=== PATIENT | male | born 1965 | race Caucasian/White ===

== ENCOUNTER 2021-08-20 22:55 | Inpatient (IN) | payer OTHER ==
[2021-08-21 00:03] LABS: #Basophils 0.1 10x3/uL (0.0-0.2); #Eosinphils 0.4 10x3/uL (0.0-0.5); #Monocytes 1.4 10x3/uL (0.0-1.1); #Neutrophils 12.4 10x3/uL (1.5-8.4); %Basophils 0.6 % (0.0-2.0); %Eosinophils 2.2 % (0.0-6.0); %Lymphocytes 18.9 % (18.0-47.0); %Monocytes 7.8 % (0.0-10.0); %Neutrophils 69.9 % (40.0-75.0); Mean Corpuscular HGB CONC 34.9 g/dL (32.0-36.0); Mean Corpuscular Hemoglobin 33.5 pg (27.0-33.0); Mean Platelet Volume 10.5 fl (7.4-10.4); Platelet Count 265 10x3/uL (150-450); RBC Distribution Width 13.2 % (11.5-14.5); Red Blood Cell (RBC) Count 4.77 10x6/uL (4.32-5.72); White Blood Cell (WBC) Count 17.8 10x3/uL (3.5-10.5)
[2021-08-21 00:17] LABS: ALT (SGPT) 27 U/L (8-55); AST (SGOT) 25 U/L (5-34); Albumin 4.1 g/dL (3.5-5.0); Alkaline Phosphatase 70 U/L (40-110); Anion Gap 13 mmol/L (10-20); BUN (Urea Nitrogen) 14 mg/dL (8.4-25.7); Bilirubin, Total 0.5 mg/dL (0.2-1.2); Calc. Creatinine Clearance 0 mL/min (70-130); Calcium 8.8 mg/dL (7.8-10.44); Carbon Dioxide 21 mmol/L (22-29); Chloride 108 mmol/L (98-107); Globulin 2.9 g/dL (2.4-3.5); Glucose 89 mg/dL (70-105); Sodium 138 mmol/L (136-145)
[2021-08-21] MEDS ORDERED: Aspirin 325 MG TAB ONE (01:30)
[2021-08-21] MEDS ORDERED: Nitroglycerin 0.4 MG TAB (25 Tab Bottle) SL PRN (02:36)
[2021-08-21] MEDS ORDERED: Nitroglycerin 2% Ointment 1 INCH/1 GM Packet ONE (03:20)
[2021-08-21] MEDS ORDERED: Furosemide 40 MG/4 ML VIAL SLOW IVP SCH ×2 (04:00→12:00)
[2021-08-21 04:06] LABS: Cardiac Risk 6.9 (Less than 4.5); Cholesterol 180 mg/dl (< 200 Desired); HDL Cholesterol 26 mg/dL (>60 Neg Risk); LDL Cholesterol, Calculated 120 mg/dL; Triglycerides 169 mg/dL (Less than 150)
[2021-08-21 04:16] LABS: Troponin I Less than 0.010 ng/mL (< 0.028)
[2021-08-21] MEDS ORDERED: Furosemide 40 MG/4 ML VIAL ONE (04:27)
[2021-08-21] MEDS: Nitroglycerin 2% Ointment 1 INCH/1 GM Packet TOP SCH ×3 (05:27→21:24)
[2021-08-21 06:28] LABS: Anion Gap 14 mmol/L (10-20); BUN (Urea Nitrogen) 14 mg/dL (8.4-25.7); Calc. Creatinine Clearance 0 mL/min (70-130); Carbon Dioxide 23 mmol/L (22-29); Chloride 107 mmol/L (98-107); Glucose 90 mg/dL (70-105); Potassium 3.7 mmol/L (3.5-5.1); Sodium 140 mmol/L (136-145)
[2021-08-21 06:33] LABS: Bilirubin Neg (Negative); Blood, Urine Negative (Negative); Clarity Clear (Clear); Glucose, Urine (Dipstick) Normal (Negative); Ketone, Urine Negative (Negative); Leukocyte 25 (Negative); Nitrite Negative (Negative); Protein, Urine (Dipstick) Negative (Neg-Trace); Specific Gravity, Urine 1.015 (1.002-1.036); Urobilinogen Normal mg/dL (Less than 2)
[2021-08-21 07:00] LABS: #Basophils 0.1 10x3/uL (0.0-0.2); #Eosinphils 0.5 10x3/uL (0.0-0.5); #Monocytes 1.1 10x3/uL (0.0-1.1); #Neutrophils 7.4 10x3/uL (1.5-8.4); %Basophils 0.9 % (0.0-2.0); %Eosinophils 3.9 % (0.0-6.0); %Lymphocytes 25.9 % (18.0-47.0); %Monocytes 8.5 % (0.0-10.0); %Neutrophils 60.1 % (40.0-75.0); Hemoglobin 16.2 g/dL (13.5-17.5); Mean Corpuscular HGB CONC 34.3 g/dL (32.0-36.0); Mean Corpuscular Hemoglobin 33.2 pg (27.0-33.0); Mean Corpuscular Volume 96.7 fl (81.2-95.1); Mean Platelet Volume 10.8 fl (7.4-10.4); Platelet Count 266 10x3/uL (150-450); RBC Distribution Width 13.6 % (11.5-14.5); Red Blood Cell (RBC) Count 4.88 10x6/uL (4.32-5.72); White Blood Cell (WBC) Count 12.3 10x3/uL (3.5-10.5)
[2021-08-21 07:12] LABS: Urine Culture Reflex No No
[2021-08-21 07:29] LABS: Bacteria/HPF None Seen HPF (None Seen); RBC/HPF None Seen HPF (0-3); Squamous Epithelial None Seen HPF (0-3); WBC/HPF 0-3 HPF (0-3)
[2021-08-21 08:11] LABS: Troponin I Less than 0.010 ng/mL (< 0.028)
[2021-08-21 08:29] VITALS: BMI 33.0
[2021-08-21] MEDS: Albuterol Sulfate 2.5 mg/3 ml Neb NEB SCH ×2 (10:45→18:50)
[2021-08-21] MEDS: Diltiazem HCl SR 60 mg Capsule PO SCH ×2 (11:11→21:25)
[2021-08-21] MEDS: Lisinopril 10 MG TAB PO SCH ×2 (11:11→21:25)
[2021-08-21] MEDS: Aspirin 81 mg Enteric Coated Tablet PO SCH (11:12)
[2021-08-21] MEDS: Enoxaparin Sodium 40 MG/0.4 ML SYRINGE SC SCH (11:12)
[2021-08-21] MEDS: Mometasone/Formoterol 200/5 60 PUFF INH SCH ×2 (11:45→19:00)
[2021-08-21 17:17] LABS: SARS-CoV-2 PCR by NAA Not Detected (NotDetected)
[2021-08-21] MEDS ORDERED: Atorvastatin Calcium 40 MG TAB PO SCH ×2 (21:00)
[2021-08-22 04:33] LABS: #Basophils 0.1 10x3/uL (0.0-0.2); #Eosinphils 0.4 10x3/uL (0.0-0.5); #Neutrophils 6.9 10x3/uL (1.5-8.4); %Basophils 0.8 % (0.0-2.0); %Eosinophils 3.4 % (0.0-6.0); %Lymphocytes 20.6 % (18.0-47.0); %Monocytes 9.5 % (0.0-10.0); %Neutrophils 64.7 % (40.0-75.0); Hemoglobin 15.5 g/dL (13.5-17.5); Mean Corpuscular HGB CONC 34.5 g/dL (32.0-36.0); Mean Corpuscular Hemoglobin 33.1 pg (27.0-33.0); Mean Corpuscular Volume 95.9 fl (81.2-95.1); Mean Platelet Volume 10.7 fl (7.4-10.4); Platelet Count 262 10x3/uL (150-450); RBC Distribution Width 13.5 % (11.5-14.5); Red Blood Cell (RBC) Count 4.68 10x6/uL (4.32-5.72); White Blood Cell (WBC) Count 10.7 10x3/uL (3.5-10.5)
[2021-08-22 04:47] LABS: Anion Gap 14 mmol/L (10-20); BUN (Urea Nitrogen) 18 mg/dL (8.4-25.7); Calc. Creatinine Clearance 97 mL/min (70-130); Carbon Dioxide 22 mmol/L (22-29); Chloride 105 mmol/L (98-107); Glucose 102 mg/dL (70-105); Potassium 3.8 mmol/L (3.5-5.1); Sodium 137 mmol/L (136-145)
[2021-08-22] MEDS: Nitroglycerin 2% Ointment 1 INCH/1 GM Packet TOP SCH (06:53)
[2021-08-22] MEDS ORDERED: Furosemide 40 MG TAB PO SCH (07:30)
[2021-08-22] MEDS: Albuterol Sulfate 2.5 mg/3 ml Neb NEB SCH (07:50)
[2021-08-22] MEDS: Mometasone/Formoterol 200/5 60 PUFF INH SCH (08:00)
[2021-08-22] MEDS: Enoxaparin Sodium 40 MG/0.4 ML SYRINGE SC SCH (09:54)
[2021-08-22] MEDS: Aspirin 81 mg Enteric Coated Tablet PO SCH (09:55)
[2021-08-22] MEDS: Diltiazem HCl SR 60 mg Capsule PO SCH (09:55)
[2021-08-22] MEDS: Lisinopril 10 MG TAB PO SCH (09:56)
[2021-08-22 12:04] VITALS: BP 126/74; TEMP 98
== END 2021-08-22 10:31 | disposition home or self-care (01) | DRG 291 ==
LOC: CSHERS 22:55 → CSHTELE 08-21 02:36 → CSHERHOLD 08-21 03:31 → UNDOADMOB 08-21 03:31 → INTOOBSV 08-21 03:31 → OBSVTOIN 08-21 03:31 → INTOOBSV 08-21 03:32 → OBSVTOIN 08-21 03:32 → CSHERHOLD 08-21 06:18 → CSHTELE 08-21 06:18 → UNDODISOB 08-22 12:00
PROVIDERS: ADMIT Family Medicine; ATTEND Family Medicine
DX: I11.0 Hypertensive heart disease with heart failure (principal); I50.33 Acute on chronic diastolic (congestive) heart failure; N39.0 Urinary tract infection, site not specified; Z20.822 Contact with and (suspected) exposure to COVID-19; K21.9 Gastro-esophageal reflux disease without esophagitis; R07.89 Other chest pain; F32.A Depression, unspecified; J44.9 Chronic obstructive pulmonary disease, unspecified; E78.5 Hyperlipidemia, unspecified; F17.210 Nicotine dependence, cigarettes, uncomplicated; F41.1 Generalized anxiety disorder; I25.10 Atherosclerotic heart disease of native coronary artery without angina pectoris; I25.2 Old myocardial infarction; Z79.51 Long term (current) use of inhaled steroids; Z79.82 Long term (current) use of aspirin; Z79.899 Other long term (current) drug therapy; Z95.2 Presence of prosthetic heart valve; Z71.6 Tobacco abuse counseling
CPT/HCPCS: 36415; 71045; 80048; 80053; 80061; 81001; 83735; 83880; 84484; 85025; 87040; 87086; 93005; 93306; 94640; 94664; J1650; J1940; J7611; U0003; U0005

== ENCOUNTER 2022-10-05 04:46 | Observation (INO) | payer BC, OTHER ==
[2022-10-05] MEDS ORDERED: Nitroglycerin 0.4 MG TAB 1 EACH ONE (05:19)
[2022-10-05] MEDS ORDERED: Ketorolac Tromethamine 30 MG/ML VIAL ONE ×3 (05:24→13:23)
[2022-10-05 05:44] LABS: #Basophils 0.1 10x3/uL (0.0-0.2); #Eosinphils 0.3 10x3/uL (0.0-0.5); #Monocytes 1.3 10x3/uL (0.0-1.1); #Neutrophils 13.8 10x3/uL (1.5-8.4); %Basophils 0.5 % (0.0-2.0); %Eosinophils 1.9 % (0.0-6.0); %Lymphocytes 9.3 % (18.0-47.0); %Monocytes 7.5 % (0.0-10.0); %Neutrophils 80.2 % (40.0-75.0); ALT (SGPT) 26 U/L (8-55); AST (SGOT) 22 U/L (5-34); Albumin 4.2 g/dL (3.5-5.0); Alkaline Phosphatase 83 U/L (40-110); Anion Gap 16 mmol/L (10-20); BUN (Urea Nitrogen) 14 mg/dL (8.4-25.7); Bilirubin, Total 0.4 mg/dL (0.2-1.2); Calc. Creatinine Clearance 0 mL/min (70-130); Calcium 9.9 mg/dL (7.8-10.44); Carbon Dioxide 21 mmol/L (22-29); Chloride 106 mmol/L (98-107); Estimated GFR 65; Globulin 2.8 g/dL (2.4-3.5); Glucose 116 mg/dL (70-105); Hemoglobin 13.6 g/dL (13.5-17.5); Mean Corpuscular HGB CONC 35.1 g/dL (32.0-36.0); Mean Corpuscular Hemoglobin 32.2 pg (27.0-33.0); Mean Corpuscular Volume 91.7 fl (81.2-95.1); Mean Platelet Volume 10.1 fl (7.4-10.4); Platelet Count 339 10x3/uL (150-450); Potassium 3.6 mmol/L (3.5-5.1); RBC Distribution Width 13.4 % (11.5-14.5); Red Blood Cell (RBC) Count 4.23 10x6/uL (4.32-5.72); Sodium 139 mmol/L (136-145); White Blood Cell (WBC) Count 17.2 10x3/uL (3.5-10.5)
[2022-10-05] MEDS ORDERED: Ipratropium/Albuterol 3 ML NEB ONE (06:19)
[2022-10-05] MEDS ORDERED: predniSONE 20 MG TAB ONE (06:28)
[2022-10-05 07:21] LABS: SARS-CoV-2 NAA Rapid Test Not Detected (NotDetected)
[2022-10-05] MEDS ORDERED: Aspirin Chewable 81 MG TAB ONE (08:57)
[2022-10-05] MEDS ORDERED: Acetaminophen 500 MG TAB ONE (08:57)
[2022-10-05 08:59] LABS: Troponin I 0.013 ng/mL (< 0.028)
[2022-10-05] MEDS ORDERED: Iopamidol 370 76% 100 ML VIAL ONE (09:03)
[2022-10-05] MEDS ORDERED: Ondansetron ODT 4 MG TAB PO PRN (09:37)
[2022-10-05] MEDS ORDERED: Senokot S 8.6-50 MG TAB PO PRN (09:37)
[2022-10-05] MEDS ORDERED: Ondansetron PF 4 MG/2 ML Vial IVP PRN (09:37)
[2022-10-05] MEDS ORDERED: Nicotine 14 MG PATCH TD PRN (09:37)
[2022-10-05] MEDS ORDERED: Ipratropium/Albuterol 3 ML NEB NEB PRN (09:40)
[2022-10-05] MEDS ORDERED: Benzonatate 100 MG CAP PO PRN (09:41)
[2022-10-05 11:29] LABS: Troponin I Less than 0.010 ng/mL (< 0.028)
[2022-10-05] MEDS ORDERED: Ventolin HFA Inhaler 60 PUFF INHALER INH PRN (11:32)
[2022-10-05 17:31] VITALS: BMI 33.0
[2022-10-05] MEDS ORDERED: FLU VACC QS2022-23(6MOS UP)/PF 60 MCG/0.5 ML SYRINGE IM ONE (20:15)
[2022-10-05] MEDS ORDERED: Atorvastatin Calcium 40 MG TAB PO SCH ×2 (21:00)
[2022-10-05] MEDS ORDERED: DULoxetine 30 MG CAP PO SCH (21:00)
[2022-10-05] MEDS: Lisinopril 20 MG TAB PO SCH (21:14)
[2022-10-05] MEDS: Famotidine 20 MG TAB PO SCH (21:14)
[2022-10-05] MEDS: Mometasone/Formoterol 200/5 60 PUFF INH SCH (23:30)
[2022-10-05 23:58] LABS: Bilirubin Neg (Negative); Blood, Urine Negative (Negative); Clarity Slightly Cloudy (Clear); Glucose, Urine (Dipstick) 50 mg/dL (Negative); Ketone, Urine 5 mg/dL (Negative); Leukocyte Negative (Negative); Nitrite Negative (Negative); Protein, Urine (Dipstick) 15 mg/dl (Neg-Trace); Specific Gravity, Urine 1.015 (1.005-1.030); Urobilinogen Normal mg/dL (Less than 2)
[2022-10-06 00:07] LABS: Bacteria/HPF None Seen HPF (None Seen); Mucous/LPF 1+ LPF (<2+); RBC/HPF 0-3 HPF (0-3); Squamous Epithelial 0-3 HPF (0-3); WBC/HPF 0-3 HPF (0-3)
[2022-10-06] MEDS: Acetaminophen 325 MG TAB PO PRN ×2 (04:34→10:10)
[2022-10-06 06:23] LABS: #Eosinphils 0.2 10x3/uL (0.0-0.5); #Monocytes 1.3 10x3/uL (0.0-1.1); #Neutrophils 8.9 10x3/uL (1.5-8.4); %Basophils 0.3 % (0.0-2.0); %Eosinophils 1.4 % (0.0-6.0); %Monocytes 9.9 % (0.0-10.0); %Neutrophils 68.7 % (40.0-75.0); Hemoglobin 12.3 g/dL (13.5-17.5); Mean Corpuscular HGB CONC 33.5 g/dL (32.0-36.0); Mean Corpuscular Hemoglobin 31.4 pg (27.0-33.0); Mean Corpuscular Volume 93.6 fl (81.2-95.1); Mean Platelet Volume 10.4 fl (7.4-10.4); Platelet Count 322 10x3/uL (150-450); RBC Distribution Width 13.5 % (11.5-14.5); Red Blood Cell (RBC) Count 3.92 10x6/uL (4.32-5.72); White Blood Cell (WBC) Count 12.9 10x3/uL (3.5-10.5)
[2022-10-06 06:33] LABS: Anion Gap 14 mmol/L (10-20); BUN (Urea Nitrogen) 19 mg/dL (8.4-25.7); Calc. Creatinine Clearance 87 mL/min (70-130); Calcium 9.2 mg/dL (7.8-10.44); Carbon Dioxide 20 mmol/L (22-29); Chloride 107 mmol/L (98-107); Estimated GFR 68; Glucose 112 mg/dL (70-105); Potassium 3.7 mmol/L (3.5-5.1); Sodium 137 mmol/L (136-145)
[2022-10-06] MEDS: Mometasone/Formoterol 200/5 60 PUFF INH SCH (07:30)
[2022-10-06] MEDS: Ketorolac Tromethamine 30 MG/ML VIAL IVP SCH ×2 (08:40→12:33)
[2022-10-06] MEDS: Lisinopril 20 MG TAB PO SCH (08:42)
[2022-10-06] MEDS: Famotidine 20 MG TAB PO SCH (08:44)
[2022-10-06] MEDS ORDERED: Clopidogrel Bisulfate 75 MG TAB PO SCH (09:00)
[2022-10-06] MEDS ORDERED: Aspirin 81 mg Enteric Coated Tablet PO SCH ×2 (09:00)
[2022-10-06] MEDS ORDERED: DULoxetine 30 MG CAP PO SCH (09:00)
[2022-10-06] MEDS ORDERED: Furosemide 40 MG TAB PO SCH (09:00)
[2022-10-06 18:46] VITALS: BP 125/67; TEMP 98.2
== END 2022-10-06 18:40 | disposition home or self-care (01) ==
LOC: CSHERS 04:46 → INTOOBSV 17:15 → CSHTELE 17:15
PROVIDERS: ADMIT Internal Medicine; ATTEND Internal Medicine
DX: R07.2 Precordial pain (principal); I25.10 Atherosclerotic heart disease of native coronary artery without angina pectoris; E78.5 Hyperlipidemia, unspecified; I35.0 Nonrheumatic aortic (valve) stenosis; I25.2 Old myocardial infarction; I11.0 Hypertensive heart disease with heart failure; I50.33 Acute on chronic diastolic (congestive) heart failure; D72.829 Elevated white blood cell count, unspecified; J44.9 Chronic obstructive pulmonary disease, unspecified; K21.9 Gastro-esophageal reflux disease without esophagitis; F41.1 Generalized anxiety disorder; R51.9 Headache, unspecified; J18.9 Pneumonia, unspecified organism; Z20.822 Contact with and (suspected) exposure to COVID-19; Z79.82 Long term (current) use of aspirin; Z79.02 Long term (current) use of antithrombotics/antiplatelets; Z79.899 Other long term (current) drug therapy; F17.210 Nicotine dependence, cigarettes, uncomplicated; Z79.51 Long term (current) use of inhaled steroids
CPT/HCPCS: 36415; 71045; 71275; 80048; 80053; 81001; 83605; 83880; 84145; 84484; 85025; 87040; 93005; 93306; 94640; 94760; 96374; 96376; G0378; J1650; J1885; J1956; J7512; J7620; Q9967